=== PATIENT | male | born 1945 | race Caucasian/White ===

== ENCOUNTER 2019-06-11 19:07 | Observation (INO) ==
[2019-06-11] MEDS ORDERED: KETAMINE 500 MG/10 ML VIAL ONE (19:23)
[2019-06-11 19:43] LABS: Basophils # 0.1 10*3/uL (0.0-0.2); Basophils % 0.9 % (0.0-0.8); Eosinophils # 0.4 10*3/uL (0.0-0.87); Eosinophils % 5.8 % (0.00-10.9); Hematocrit 40.3 VOL% (42.0-52.0); Hemoglobin 14.4 GM/DL (14.0-18.0); Immature Granulocytes % 0.1 %; Immature Granulocytes Absolute 0.01 #; Lymphocytes # 2.4 10*3/uL (1.4-4.0); Lymphocytes % 36.2 % (21.2-54.2); Mean Corpuscular HGB Conc 35.7 GM/DL (32-36); Mean Corpuscular Volume 87.8 FL (87-102); Mean Platelet Volume 9.3 FL (9.6-12.0); Monocytes % 9.5 % (1.7-12.7); Neutrophils % 47.5 % (38.7-73.9); Platelet Count 212 T/CUMM (130-400); Red Blood Count 4.59 MC/CUMM (3.8-5.5); Red Cell Distribution Width 12.7 % (9.3-17.3); White Blood Count 6.7 T/CUMM (4-12)
[2019-06-11 19:55] LABS: INR 0.9
[2019-06-11 20:03] LABS: Albumin 3.5 G/DL (3.4-5.0); Bilirubin,Total 0.7 MG/DL (0.2-1.0); Calcium 9.1 MG/DL (8.5-10.1); Total Protein 6.7 G/DL (6.4-8.3)
[2019-06-11] MEDS ORDERED: LEVOFLOXACIN INJ 500 MG in PREMIX 1 EACH IV STA (20:18)
[2019-06-11 21:19] LABS: Apearance,Urine CLEAR (Clear); Bilirubin,Urine Negative (Negative); Blood, Urine Negative (Negative); Glucose,Urine (UA) Negative (Negative); Ketones,Urine Negative (Negative); Mucus,Urine Occasional /LPF (Occasional); Nitrite,Urine Negative (Negative); Protein,Urine Negative; RBC,Urine 2 /HPF (0-4); Urine Color Yellow (Yellow); Urine Specific Gravity 1.015 (1.001-1.035); WBC,Urine 2 /HPF (0-6)
[2019-06-11] MEDS ORDERED: ONDANSETRON 4 MG/2 ML VIAL IV PRN (21:25)
[2019-06-11] MEDS ORDERED: NICOTINE 21 MG/24 HR PATCH TRANSDERM PRN (21:25)
[2019-06-11] MEDS ORDERED: hydrALAZINE 20 MG/1 ML VIAL IV PRN (21:25)
[2019-06-11] MEDS ORDERED: ALBUTEROL/IPRATROPIUM 3 ML NEB RESP TX PRN (21:29)
[2019-06-11] MEDS ORDERED: NITROGLYCERIN SL 0.4 MG TABLET SL PRN (22:34)
[2019-06-12 00:18] LABS: Barbiturates Screen,Urine Negative (Negative); Benzodiazepines Screen,Urine Negative (Negative); Cannabinoid Screen,Urine Negative (Negative); Opiate Screen,Urine Negative (Negative); Phencyclidine Screen,Urine Negative (Negative)
[2019-06-12] MEDS: ASPIRIN EC 81 MG TABLET PO SCH (08:16)
[2019-06-12] MEDS: PARoxetine 20 MG TABLET PO SCH (08:16)
[2019-06-12] MEDS: ISOSORBIDE MONONITRATE 60 MG TABLET PO SCH (08:16)
[2019-06-12] MEDS: AMITRIPTYLINE 10 MG TABLET PO PRN ×2 (08:16→17:17)
[2019-06-12] MEDS: lisinopriL 20 MG TABLET PO SCH ×2 (08:16→21:59)
[2019-06-12] MEDS: amLODIPine 10 MG TABLET PO SCH (08:16)
[2019-06-12] MEDS: PANTOPRAZOLE 40 MG TABLET PO SCH ×2 (08:17→21:59)
[2019-06-12] MEDS: ATORVASTATIN 10 MG TABLET PO SCH (08:28)
[2019-06-12] MEDS: METOPROLOL SUCCINATE XL 25 MG TABLET PO SCH (08:28)
[2019-06-12] MEDS: ACETAMINOPHEN 325 MG TABLET PO PRN ×2 (13:15→17:17)
[2019-06-12] MEDS ORDERED: TAMSULOSIN 0.4 MG CAPSULE PO SCH (18:00)
[2019-06-12] MEDS ORDERED: LEVOFLOXACIN INJ 500 MG in PREMIX 1 EACH IV SCH (21:00)
[2019-06-13] MEDS: ATORVASTATIN 10 MG TABLET PO SCH (08:44)
[2019-06-13] MEDS: PARoxetine 20 MG TABLET PO SCH (08:44)
[2019-06-13] MEDS: ASPIRIN EC 81 MG TABLET PO SCH (08:44)
[2019-06-13] MEDS: ISOSORBIDE MONONITRATE 60 MG TABLET PO SCH (08:45)
[2019-06-13] MEDS: lisinopriL 20 MG TABLET PO SCH (08:46)
[2019-06-13] MEDS: amLODIPine 10 MG TABLET PO SCH (08:46)
[2019-06-13] MEDS: METOPROLOL SUCCINATE XL 25 MG TABLET PO SCH (08:46)
[2019-06-13] MEDS: PANTOPRAZOLE 40 MG TABLET PO SCH (08:46)
[2019-06-13 08:55] VITALS: BP 133/86
== END 2019-06-13 11:05 | disposition home or self-care (01) ==
LOC: N.ED 19:07 → N.EDINP 19:07 → N.5E 23:32
PROVIDERS: ADMIT Internal Medicine Geriatric Medicine; ATTEND Internal Medicine Geriatric Medicine

== ENCOUNTER 2020-01-09 10:45 | Observation (INO) ==
[2020-01-09 11:29] LABS: Basophils # 0.1 10*3/uL (0.0-0.2); Basophils % 1.1 % (0.0-0.8); Eosinophils # 0.2 10*3/uL (0.0-0.87); Eosinophils % 3.6 % (0.00-10.9); Hematocrit 43.3 VOL% (42.0-52.0); Hemoglobin 15.2 GM/DL (14.0-18.0); Immature Granulocytes % 0.2 %; Immature Granulocytes Absolute 0.01 #; Lymphocytes # 2.2 10*3/uL (1.4-4.0); Lymphocytes % 32.4 % (21.2-54.2); Mean Corpuscular HGB Conc 35.1 GM/DL (32-36); Mean Corpuscular Volume 90.6 FL (87-102); Mean Platelet Volume 9.2 FL (9.6-12.0); Monocytes % 8.7 % (1.7-12.7); Platelet Count 222 T/CUMM (130-400); Red Blood Count 4.78 MC/CUMM (3.8-5.5); Red Cell Distribution Width 12.4 % (9.3-17.3); White Blood Count 6.6 T/CUMM (4-12)
[2020-01-09] MEDS ORDERED: ONDANSETRON 4 MG/2 ML VIAL IV STA (11:53)
[2020-01-09] MEDS ORDERED: MORPHINE 4 MG/1 ML VIAL IV STA ×2 (11:53→12:20)
[2020-01-09 11:59] LABS: Albumin 3.8 G/DL (3.4-5.0); Bilirubin,Total 1.1 MG/DL (0.2-1.0); Calcium 9.4 MG/DL (8.5-10.1); Osmolality,Calculated 281.3 MOS/KG (273-304)
[2020-01-09 12:09] LABS: Bilirubin,Urine Negative (Negative); Blood, Urine Negative (Negative); Glucose,Urine (UA) Negative (Negative); Ketones,Urine 5 mg/dL (Negative); Mucus,Urine Occasional /LPF (Occasional); Nitrite,Urine Negative (Negative); Protein,Urine Negative; Urine Appearance CLEAR (Clear); Urine Color Yellow (Yellow); Urine Specific Gravity 1.009 (1.001-1.035); Urine Urobilinogen < 2.0 EU/DL (0.2-1.0); WBC,Urine 1 /HPF (0-6)
[2020-01-09] MEDS ORDERED: KETOROLAC 30 MG/1 ML VIAL IV STA (12:36)
[2020-01-09] MEDS ORDERED: NITROGLYCERIN SL 0.4 MG TABLET SL PRN (12:41)
[2020-01-09] MEDS ORDERED: BUTALBITAL/ACETAMIN/CAFFEINE 50-325-40 MG TABLET PO ONE ×2 (12:41)
[2020-01-09] MEDS ORDERED: LORazepam 2 MG/1 ML VIAL IV STA ×2 (12:57→13:01)
[2020-01-09 13:07] LABS: Ferritin 134.9 ng/ml (26-388)
[2020-01-09] MEDS ORDERED: SUMAtriptan 25 MG TABLET PO PRN (13:16)
[2020-01-09] MEDS ORDERED: diphenhydrAMINE 50 MG/1 ML VIAL IV STA (13:46)
[2020-01-09] MEDS ORDERED: INFLUENZA VIRUS VACCINE 0.5 ML SYRINGE IM ONE (14:11)
[2020-01-09] MEDS ORDERED: ZIPRASIDONE 20 MG/1 ML VIAL IM ONE (20:00)
[2020-01-09] MEDS ORDERED: traZODone 50 MG TABLET PO SCH (21:00)
[2020-01-09] MEDS: lisinopriL 20 MG TABLET PO SCH (21:01)
[2020-01-09] MEDS: TAMSULOSIN 0.4 MG CAPSULE PO SCH (21:01)
[2020-01-10 05:44] LABS: Basophils # 0.1 10*3/uL (0.0-0.2); Basophils % 0.9 % (0.0-0.8); Eosinophils # 0.2 10*3/uL (0.0-0.87); Eosinophils % 3.6 % (0.00-10.9); Hematocrit 44.3 VOL% (42.0-52.0); Hemoglobin 15.1 GM/DL (14.0-18.0); Immature Granulocytes % 0.4 %; Immature Granulocytes Absolute 0.02 #; Lymphocytes # 1.6 10*3/uL (1.4-4.0); Lymphocytes % 27.7 % (21.2-54.2); Mean Corpuscular HGB Conc 34.1 GM/DL (32-36); Mean Corpuscular Volume 91.9 FL (87-102); Mean Platelet Volume 9.3 FL (9.6-12.0); Monocytes % 8.9 % (1.7-12.7); Neutrophils % 58.5 % (38.7-73.9); Platelet Count 205 T/CUMM (130-400); Red Blood Count 4.82 MC/CUMM (3.8-5.5); Red Cell Distribution Width 12.6 % (9.3-17.3); White Blood Count 5.6 T/CUMM (4-12)
[2020-01-10 06:11] LABS: Risk Ratio 2.44; Thyroid Stimulating Hormone 2.33 uIU/ml (0.358-3.74); VLDL CHOLESTEROL 19.6 MG/DL
[2020-01-10] MEDS: METOPROLOL SUCCINATE XL 25 MG TABLET PO SCH (08:13)
[2020-01-10] MEDS: ASPIRIN EC 81 MG TABLET PO SCH (08:13)
[2020-01-10] MEDS: PARoxetine 10 MG TABLET PO SCH (08:13)
[2020-01-10] MEDS: amLODIPine 10 MG TABLET PO SCH (08:13)
[2020-01-10] MEDS: ATORVASTATIN 10 MG TABLET PO SCH (08:13)
[2020-01-10] MEDS: PANTOPRAZOLE 40 MG TABLET PO SCH (08:13)
[2020-01-10] MEDS: lisinopriL 20 MG TABLET PO SCH ×2 (08:13→20:58)
[2020-01-10] MEDS: ISOSORBIDE MONONITRATE 60 MG TABLET PO SCH (08:13)
[2020-01-10] MEDS ORDERED: PANTOPRAZOLE 40 MG TABLET PO SCH (09:00)
[2020-01-10] MEDS ORDERED: amLODIPine 10 MG TABLET PO SCH (09:00)
[2020-01-10] MEDS: TAMSULOSIN 0.4 MG CAPSULE PO SCH (20:58)
[2020-01-11 03:43] LABS: Basophils # 0.1 10*3/uL (0.0-0.2); Basophils % 0.9 % (0.0-0.8); Eosinophils # 0.3 10*3/uL (0.0-0.87); Eosinophils % 4.1 % (0.00-10.9); Hematocrit 43.2 VOL% (42.0-52.0); Hemoglobin 15.2 GM/DL (14.0-18.0); Immature Granulocytes % 0.1 %; Immature Granulocytes Absolute 0.01 #; Lymphocytes # 1.7 10*3/uL (1.4-4.0); Lymphocytes % 23.8 % (21.2-54.2); Mean Corpuscular HGB Conc 35.2 GM/DL (32-36); Mean Corpuscular Volume 89.4 FL (87-102); Mean Platelet Volume 9.5 FL (9.6-12.0); Monocytes % 9.2 % (1.7-12.7); Neutrophils % 61.9 % (38.7-73.9); Platelet Count 197 T/CUMM (130-400); Red Blood Count 4.83 MC/CUMM (3.8-5.5); Red Cell Distribution Width 12.3 % (9.3-17.3); White Blood Count 7.1 T/CUMM (4-12)
[2020-01-11 07:12] VITALS: BP 119/73
[2020-01-11] MEDS: PARoxetine 10 MG TABLET PO SCH (08:57)
[2020-01-11] MEDS: amLODIPine 10 MG TABLET PO SCH (08:58)
[2020-01-11] MEDS: PANTOPRAZOLE 40 MG TABLET PO SCH (08:58)
[2020-01-11] MEDS: lisinopriL 20 MG TABLET PO SCH (08:58)
[2020-01-11] MEDS: ATORVASTATIN 10 MG TABLET PO SCH (08:58)
[2020-01-11] MEDS: ASPIRIN EC 81 MG TABLET PO SCH (08:58)
[2020-01-11] MEDS: METOPROLOL SUCCINATE XL 25 MG TABLET PO SCH (08:58)
[2020-01-11] MEDS: ISOSORBIDE MONONITRATE 60 MG TABLET PO SCH (08:58)
== END 2020-01-11 09:35 | disposition home or self-care (01) ==
LOC: EDUNIT# → EDBD → N.EDINP 10:45 → N.ED 10:45 → N.EDINP 13:48 → N.5E 14:00
PROVIDERS: ADMIT Internal Medicine; ATTEND Internal Medicine